=== PATIENT | male | born 1970 | race Caucasian/White ===

== ENCOUNTER 2018-11-11 02:01 | Emergency (ER) | payer MEDICAID ==
[~2018-11-11] VITALS: Ht 167.6 cm; Wt 74.4 kg
[2018-11-11 02:24] VITALS: BP_SYST 140
[2018-11-11] MEDS ORDERED: NACL 0.9% 1,000 ML IV ONE (02:49)
[2018-11-11] MEDS ORDERED: IBUPROFEN 600 MG TABLET PO ONE (03:00)
[2018-11-11 03:05] LABS: BILIRUBIN,URINE NEGATIVE (NEGATIVE); BLOOD, URINE NEGATIVE (NEGATIVE); CLARITY/URINE CLEAR (CLEAR); COLOR,URINE YELLOW (YELLOW); GLUCOSE,URINE NEGATIVE (NEGATIVE); KETONES,URINE NEGATIVE (NEGATIVE); LEUKOCYTE ESTERASE ,URINE NEGATIVE (NEGATIVE); NITRITE, URINE NEGATIVE (NEGATIVE); PH,URINE 5.5 (5.0-8.0); PROTEIN URINE NEGATIVE (NEGATIVE); UROBILINOGEN,URINE 0.2 (0.2-1.0)
[2018-11-11 03:39] LABS: BASOPHILS # (AUTO) 0.1 K/uL (0.0-0.2); BASOPHILS % (AUTO) 2.5 % (0.0-2.0); EOSINOPHILS # (AUTO) 0.1 K/uL (0.0-0.4); EOSINOPHILS % (AUTO) 0.9 % (0.0-4.0); HEMATOCRIT 47.3 % (36-54); HEMOGLOBIN 15.7 g/dL (14.0-18.0); LYMPHOCYTES % (AUTO) 16.5 % (20.5-51.5); MEAN CORPUSCULAR HEMOGLOBIN 30 pg (27-31); MEAN CORPUSCULAR HGB CONC 33 % (32-36); MEAN CORPUSCULAR VOLUME 91 fL (79.0-98.0); MONOCYTES # (AUTO) 0.7 K/uL (0.0-1.0); MONOCYTES % (AUTO) 12.8 % (1.7-9.3); NEUTROPHILS # (AUTO) 3.9 K/uL (1.8-7.7); NEUTROPHILS % (AUTO) 67.3 % (40.0-70.0); PLATELET COUNT (AUTO) 237 K/uL (130-430); RED CELL DISTRIBUTION WIDTH 12.1 % (9.0-15.0); WHITE BLOOD COUNT (AUTO) 5.8 K/uL (4.8-10.8)
[2018-11-11 03:42] LABS: CALCIUM 8.5 mg/dL (8.4-11.0); CREATININE 1.15 mg/dL (0.55-1.30); POTASSIUM 4.3 mmol/L (3.5-5.1)
[2018-11-11 03:47] LABS: ALBUMIN 3.9 g/dL (3.4-4.8); TOTAL BILIRUBIN 0.4 mg/dL (0.0-1.0)
[2018-11-11 03:50] VITALS: BP_SYST 135
== END 2018-11-11 03:50 | disposition home or self-care (01) ==
LOC: SED 02:01
DX: J10.1 Influenza due to other identified influenza virus with other respiratory manifestations (principal)
CPT/HCPCS: 36415; 80053; 81003; 83605; 85025; 86710; 87040; 96360; 99283; J7030

== ENCOUNTER 2020-02-12 13:16 | Emergency (ER) | payer MEDICAID, SELFPAY ==
[~2020-02-12] VITALS: Ht 167.6 cm; Wt 73.5 kg
[2020-02-12 13:16] VITALS: BP_SYST 141
--- NOTE | 2020-02-12 13:16 | NUR ---
BROUGHT BACK TO BED #5 AND TRIAGED. REPORT GIVEN TO NETO
--- NOTE | 2020-02-12 13:27 | NUR ---
Patient is awake, alert, and oriented x4. Patient reports he has had a loss of appetite, took old amoxicillin for 3 days, felt better, started working out, now he has a loss of appetite again. No other complaints.
--- NOTE | 2020-02-12 13:41 | NUR ---
Report given to KELVIN Guzman.
--- NOTE | 2020-02-12 14:30 | NUR ---
Patient given written and verbal discharge instructions and verbalizes understanding. ER MD discussed with patient the results and treatment provided. Patient in stable condition. ID arm band removed. No Rx given. Patient educated on pain management and to follow up with PMD . Pain Scale 0/10. Opportunity for questions provided and answered. Medication side effect fact sheet provided.
[2020-02-12 19:30] VITALS: BP_SYST 134
== END 2020-02-12 14:30 | disposition home or self-care (01) ==
LOC: EEVIPCON 13:16 → SED 13:16
DX: J11.1 Influenza due to unidentified influenza virus with other respiratory manifestations (principal); R53.1 Weakness; Z20.828 Contact with and (suspected) exposure to other viral communicable diseases
CPT/HCPCS: 99283; U0002

== ENCOUNTER 2020-11-01 11:13 | Emergency (ER) | payer MEDICAID, SELFPAY ==
[~2020-11-01] VITALS: Ht 167.6 cm; Wt 72.6 kg
[2020-11-01 11:39] VITALS: BP_SYST 137
[2020-11-01] MEDS ORDERED: ERYEYE EACH EYE ×2 (11:47→12:20)
[2020-11-01 12:14] VITALS: BP_SYST 137
== END 2020-11-01 12:14 | disposition home or self-care (01) ==
LOC: SED 11:13
DX: S05.02XA Injury of conjunctiva and corneal abrasion without foreign body, left eye, initial encounter (principal); X58.XXXA Exposure to other specified factors, initial encounter; Y93.89 Activity, other specified; Y92.89 Other specified places as the place of occurrence of the external cause; Y99.8 Other external cause status
CPT/HCPCS: 99284

== ENCOUNTER 2022-09-04 10:07 | Emergency (ER) | payer MEDICAID ==
[~2022-09-04] VITALS: Ht 167.6 cm; Wt 68.0 kg
[~2022-09-04 10:07] MED LIST: ERYEYE EACH EYE
[2022-09-04 10:45] VITALS: BP_SYST 143
--- NOTE | 2022-09-04 10:51 | NUR ---
Patient triaged and placed in waiting room. VSS and patient appears in no acute distress at this time. Accompanied by SELF, awaiting available bed, and MD notified of need for MSE.
--- NOTE | 2022-09-04 11:50 | NUR ---
ER DR. MURRAY EXAMINING PT IN TRIAGE
[2022-09-04] MEDS ORDERED: IBUP-1971 PO (12:24)
[2022-09-04] MEDS ORDERED: NIRM1TAB5 PO (12:24)
[2022-09-04 12:30] VITALS: BP_SYST 143
--- NOTE | 2022-09-04 12:30 | NUR ---
Patient given written and verbal discharge instructions and verbalizes understanding. ER MD discussed with patient the results and treatment provided. Patient in stable condition. ID arm band removed. Rx of PAXLOVID AND MOTRIN given. Patient educated on pain management and to follow up with PMD. Pain Scale 0/10. Opportunity for questions provided and answered. Medication side effect fact sheet provided.
== END 2022-09-04 12:30 | disposition home or self-care (01) ==
LOC: SED 10:07
DX: U07.1 COVID-19 (principal); J40 Bronchitis, not specified as acute or chronic; R05.9 Cough, unspecified; R09.81 Nasal congestion; R51.9 Headache, unspecified; Z79.899 Other long term (current) drug therapy
CPT/HCPCS: 36415; 71045; 99284

== ENCOUNTER 2022-12-10 11:29 | Emergency (ER) | payer MEDICAID ==
[~2022-12-10] VITALS: Ht 15.2 cm; Wt 2.3 kg
[~2022-12-10 11:29] MED LIST changes: +IBUP-1971 PO; +NIRM1TAB5 PO
[2022-12-10 11:45] VITALS: BP_SYST 133
[2022-12-10] MEDS ORDERED: MED4 PO (11:47)
[2022-12-10 11:53] VITALS: BP_SYST 133
== END 2022-12-10 11:52 | disposition home or self-care (01) ==
LOC: SED 11:29
DX: R05.9 Cough, unspecified (principal); Z79.899 Other long term (current) drug therapy
CPT/HCPCS: 99283

== ENCOUNTER 2023-10-03 00:20 | Emergency (ER) | payer MEDICAID ==
[~2023-10-03] VITALS: Ht 167.6 cm; Wt 70.3 kg
[~2023-10-03 00:20] MED LIST changes: +MED4 PO
[2023-10-03 00:31] VITALS: BP_SYST 130; PULSE 69; RESP 24; TEMP 97; O2SAT 99
[2023-10-03] MEDS ORDERED: PHEDM120 PO (03:11)
[2023-10-03 03:20] VITALS: BP_SYST 130; PULSE 69; RESP 24; TEMP 97; O2SAT 99
== END 2023-10-03 03:20 | disposition home or self-care (01) ==
LOC: SED 00:20
DX: R05.9 Cough, unspecified (principal); R09.81 Nasal congestion; J02.9 Acute pharyngitis, unspecified; Z79.899 Other long term (current) drug therapy
CPT/HCPCS: 99283

== ENCOUNTER 2023-10-27 12:45 | Emergency (ER) | payer MEDICAID ==
[~2023-10-27] VITALS: Ht 167.6 cm; Wt 72.6 kg
[~2023-10-27 12:45] MED LIST changes: +PHEDM120 PO
[2023-10-27 13:18] VITALS: BP_SYST 127; PULSE 94; RESP 21; TEMP 97; O2SAT 100
[2023-10-27 14:10] LABS: INFLUENZA TYPE A Negative (NEGATIVE); INFLUENZA TYPE B NEGATIVE (NEGATIVE)
[2023-10-27] MEDS ORDERED: ALBMDI INH (14:16)
[2023-10-27] MEDS ORDERED: BENZ100C92 PO (14:16)
[2023-10-27] MEDS ORDERED: PRED20TA PO (14:16)
[2023-10-27] MEDS ORDERED: GUAI-723 PO (14:16)
[2023-10-27 14:25] VITALS: BP_SYST 125; PULSE 95; RESP 20; TEMP 98; O2SAT 100
== END 2023-10-27 14:20 | disposition home or self-care (01) ==
LOC: SED 12:45
DX: J20.9 Acute bronchitis, unspecified (principal); R05.9 Cough, unspecified; R09.81 Nasal congestion; J34.89 Other specified disorders of nose and nasal sinuses; Z79.899 Other long term (current) drug therapy; Z20.822 Contact with and (suspected) exposure to COVID-19
CPT/HCPCS: 36415; 71045; 99284